=== PATIENT | male | born 1955 | race Caucasian/White ===

== ENCOUNTER 2024-04-07 16:42 | Emergency (ER) | payer OTHER ==
[~2024-04-07] VITALS: Ht 177.8 cm; Wt 88.5 kg
[~2024-04-07 16:42] MED LIST: ASPI325 PO; ATOR40TA PO; CLOP75 PO; IBUP800 PO; NITR.4SL SL; OLME20 PO; PANT20; PRED20 PO; RANEXA1000 M4; TESTTP TOP; VALS80
[2024-04-07 17:48] VITALS: BP 144/88
[2024-04-07] MEDS ORDERED: Ondansetron HCl 2 MG / ML 2ML Vial IV PRN (18:00)
== END 2024-04-07 18:37 | disposition left against medical advice (07) ==
LOC: ER 16:42
DX: Z53.21 Procedure and treatment not carried out due to patient leaving prior to being seen by health care provider (principal)
CPT/HCPCS: 93005; 93010

== ENCOUNTER 2024-06-30 18:24 | Inpatient (IN) | payer OTHER ==
[~2024-06-30] VITALS: Ht 177.8 cm; Wt 94.1 kg
[~2024-06-30 18:24] MED LIST changes: -PANT20; +PANT20 PO; -RANEXA1000 M4; +RANEXA1000 M4 PO; -VALS80; +VALS80 PO
[2024-06-30 22:35] LABS: Body Fluid Crystals NEG (NEGATIVE)
[2024-06-30 22:51] LABS: Glucose, Body Fluid 9 mg/dL; Protein, Body Fluid 1.6 g/dL; WBC Count, Synovial Fluid 7763 /mm3 (0-180)
[2024-06-30 23:00] LABS: Appearance, Synovial Fluid Hazy (Clear); Color, Synovial Fluid Yellow (None-P Yel); RBC Count, Synovial Fluid 155 /mm3 (0-0)
[2024-06-30] MEDS ORDERED: CefTRIAXone Sodium 2,000 MG in NS 100 ML IV ONE (23:20)
[2024-06-30 23:22] LABS: Lymphs, Synovial Fluid 1 % (0-15); Monocytes/Macrophages, Synovia 16 % (0-65); Neutrophils, Synovial Fluid 83 % (0-24)
[2024-07-01] VITALS (12 sets, daily range): BP systolic 111–141; BP diastolic 61–90
[2024-07-01] MEDS ORDERED: Acetaminophen 325 MG TABLET PO PRN ×2 (00:45→11:40)
[2024-07-01] MEDS ORDERED: FLU VACC TS2024-25(6MOS UP)/PF 45 MCG/0.5 ML SYRINGE IM ONE ×2 (00:50→11:35)
[2024-07-01] MEDS ORDERED: OxyCODONE HCL 5 MG TAB PO PRN ×2 (00:50→11:40)
[2024-07-01] MEDS ORDERED: Ondansetron HCl 2 MG / ML 2ML Vial IV PRN ×3 (00:50→11:45)
[2024-07-01] MEDS ORDERED: Lactated Ringer's 1,000 ML IV SCH ×2 (01:00→09:45)
[2024-07-01] MEDS ORDERED: Lactated Ringer's 1,000 ML IV ONE (01:52)
[2024-07-01] MEDS ORDERED: Vancomycin HCL 2,500 MG in NS 500 ML IV ONE (02:35)
[2024-07-01 05:56] LABS: BASOPHILS ABSOLUTE AUTO 0.02 K/mm3 (0.00-0.23); BASOPHILS PERCENT AUTO 0 % (0-2); EOSINOPHILS ABSOLUTE AUTO 0.09 K/mm3 (0.00-0.68); EOSINOPHILS PERCENT AUTO 1 % (0-6); Hematocrit 37.8 % (37.0-53.0); Hemoglobin 12.9 g/dL (13.5-17.5); IMMATURE GRAN ABSOLUTE AUTO 0.04 K/mm3 (0.00-0.10); IMMATURE GRAN PERCENT AUTO 0 % (0-1); LYMPHOCYTES ABSOLUTE AUTO 1.84 K/mm3 (0.84-5.20); LYMPHOCYTES PERCENT AUTO 19 % (21-46); MONOCYTES ABSOLUTE AUTO 1.14 K/mm3 (0.16-1.47); MONOCYTES PERCENT AUTO 12 % (4-13); Mean Corpuscular HGB 31.9 pg (26.0-34.0); Mean Corpuscular HGB Conc 34.1 g/dL (31.5-36.5); Mean Corpuscular Volume 94 fL (80-100); Mean Platelet Volume 10.1 fL (9.1-12.4); NEUTROPHILS ABSOLUTE AUTO 6.49 K/mm3 (1.96-9.15); NEUTROPHILS PERCENT AUTO 68 % (41-73); Platelet Count 167 K/mm3 (150-400); RDW Coefficient Variation 13.2 % (11.7-14.2); RDW Standard Deviation 45.6 fL (35.1-46.3); Red Blood Cell Count 4.04 M/mm3 (4.30-5.90); White Blood Cell Count 9.62 K/mm3 (4.00-11.30)
[2024-07-01 06:09] LABS: International Normalized Ratio 1.06; Prothrombin Time Results 11.3 Sec (9.7-11.5)
[2024-07-01 06:13] LABS: Magnesium, Blood 1.7 mg/dL (1.6-2.4)
[2024-07-01 06:14] LABS: Albumin, Blood 3.4 g/dL (3.4-5.0); Albumin/Globulin Ratio 1.1 (0.8-1.8); Bilirubin, Total 0.5 mg/dL (0.1-1.0); Bun/Creatinine Ratio 15.8 (12.0-20.0); Calcium, Blood 8.4 mg/dL (8.5-10.1); Creatinine, Blood 0.82 mg/dL (0.60-1.20); Globulin, Blood 3.1 g/dL (2.2-4.0); Potassium, Blood 3.9 mmol/L (3.5-5.5); Total Protein, Blood 6.5 g/dL (6.4-8.2)
[2024-07-01] MEDS ORDERED: Docusate Sodium 100 MG Cap PO SCH ×2 (09:00→21:00)
[2024-07-01] MEDS ORDERED: Lactobacil 2-S.Thermo-Bifido 1 1 Cap PO SCH (09:00)
[2024-07-01] MEDS ORDERED: Ondansetron HCl 2 MG / ML 2ML Vial ONE (09:32)
[2024-07-01] MEDS ORDERED: propofoL 20 ML IV ONE (09:32)
[2024-07-01] MEDS ORDERED: Lidocaine HCl 2% 20 ML MDV ONE (09:32)
[2024-07-01] MEDS ORDERED: Rocuronium Bromide 10 MG/ML 5ML Injection IV ONE (09:32)
[2024-07-01] MEDS ORDERED: FentaNYL Citrate 50 MCG/ML 2 ML Injection ONE ×2 (09:33→10:44)
[2024-07-01] MEDS ORDERED: Bupivacaine 0.5% HCl 5 MG/ML 30MLVIAL ONE (09:35)
[2024-07-01] MEDS ORDERED: EPINEPhrine HCl 1 MG / ML 30ML Vial ONE (09:35)
[2024-07-01] MEDS ORDERED: Sugammadex Sodium 200 MG/2ML SDV (100 MG/ML) ONE (10:18)
[2024-07-01] MEDS ORDERED: Labetalol HCL 5 MG/ML 4ML Injection (Single Dose) ONE (10:42)
[2024-07-01] MEDS ORDERED: Bupivacaine 0.5% W/EPI 1:200000 SDV 30 ML Vial ONE (10:51)
[2024-07-01] MEDS ORDERED: FentaNYL Citrate 50 MCG/ML 2 ML Injection IV PRN ×2 (10:55→11:00)
[2024-07-01] MEDS ORDERED: Prochlorperazine Edisylate 10 mg Vial IV PRN (10:55)
[2024-07-01] MEDS ORDERED: HYDROmorphone HCl/Pf 1MG SYR IV PRN ×3 (11:00→11:35)
[2024-07-01] MEDS ORDERED: Labetalol HCL 5 MG/ML 4ML Injection (Single Dose) IV PRN (11:00)
[2024-07-01] MEDS ORDERED: NS KCl 20mEq 1,000 ML IV SCH (11:35)
[2024-07-01] MEDS ORDERED: Bisacodyl 10 MG Supp PR PRN (11:35)
[2024-07-01] MEDS ORDERED: DiphenhydrAMINE HCL 25 MG Cap PO PRN (11:40)
[2024-07-01] MEDS ORDERED: Metoclopramide HCl 10 MG Tab PO PRN (11:40)
[2024-07-01] MEDS ORDERED: Ondansetron 4 MG TAB PO PRN (11:40)
[2024-07-01] MEDS ORDERED: Naloxone HCl 0.4MG / ML 1ML Vial IV PRN (11:40)
[2024-07-01] MEDS ORDERED: Magnesium Hydroxide Conc 10 ML UDC PO PRN (11:45)
[2024-07-01] MEDS ORDERED: Ketorolac Tromethamine 30mg Vial IV PRN (12:05)
--- NOTE | 2024-07-01 12:17 | NUR ---
POST OP S/P LEFT KNEE I&D WITH HEMOVAC. PT ALERT AND ORIENTED. DENIES PAIN. DENIES N/T. ABLE TO WIGGLE TOES. CAP REFILL <3 SECONDS. ANA ROSA WRAP DRESSING TO L KNEE APPEARS CDI. HEMOVAC COMPRESSED AND INTACT. OFFERING FLUIDS AND FOOD. POST OP VS IN PROGRESS AND STABLE. ORIENTED TO ROOM, TREATMENT PLAN, AND CALL LIGHT. AT BEDSIDE FOR SUPPORT.
[2024-07-01 12:20] LABS: Body Fluid Crystals NEG (NEGATIVE)
[2024-07-01 12:36] LABS: BODY FLUID RBC 0.008 M/mm3 (0-0)
[2024-07-01 12:53] LABS: RBC Count, Synovial Fluid 8000 /mm3 (0-0); WBC Count, Synovial Fluid 5760 /mm3 (0-180)
[2024-07-01 13:33] LABS: Color, Synovial Fluid Yellow (None-P Yel); Lymphs, Synovial Fluid 2 % (0-15); Monocytes/Macrophages, Synovia 12 % (0-65); Neutrophils, Synovial Fluid 86 % (0-24)
[2024-07-01 13:34] LABS: Appearance, Synovial Fluid Cloudy (Clear)
[2024-07-01] MEDS ORDERED: ASPI81CH PO (13:36)
[2024-07-01] MEDS ORDERED: TAMS.4ER PO (13:37)
[2024-07-01] MEDS ORDERED: FINESTERIDE PO (13:38)
--- NOTE | 2024-07-01 14:15 | NUR ---
ASSUMTION OF CARE ASSUMED CARE OF THE PATIENT FROM PRIMARY DAY RN. REPORT GIVEN AT BEDSIDE, PT RESTING IN BED STATING HE WAS JUST GIVEN PAIN MEDICATIONS AND DIDN'T NEED ANYTHING AT THIS TIME. PT ASKED ABOUT THE DRAIN HAVING MORE BLOOD IN IT NOW THAT IT IS COLLECTING IN THE MAIN COMPARTMENT OF THE HEMOVAC. ASSURED PATIENT THAT THIS IS HOW THE DRAIN IS INTENDED TO WORK AND HAVING AN INCREASE AFTER ACTIVITY IS NOT CONCERNING. SMALL AMOUNT OF SANG DRAINAGE NOTED IN THE CANISTER AT THIS TIME. NO ACUTE NEEDS AT THIS TIME.
[2024-07-01] MEDS ORDERED: Vancomycin HCL 1,250 MG in NS 250 ML IV SCH (15:00)
[2024-07-01] MEDS ORDERED: NS 500 ML IV SCH (19:45)
[2024-07-01] MEDS ORDERED: NS 250 ML IV PRN (19:45)
--- NOTE | 2024-07-01 20:33 | NUR ---
PER REQUEST OF PT,I SPOKE WITH DR BABB AND OBTAINED AN ORDER FOR RANEXA PT TAKES AT HOME. I SPOKE WITH PHARMACIST "ASHLEY" THE ONLY RANEXA I CAN FIND IN OUR REGISTER IS NO LISTED SUSTAINED RELEASE WHICH IS HOW PT LISTS IT ON HIS HOME MED LIST. PHARMACIST STATES THERE IS ONLY 1 WAY THE SENIOR [employer] DEVELOPER SUPPLIES RANEXA AND ORDERED IS COMPATIBLE WITH PT LISTING OF SUSTAINED RELEASE.
[2024-07-01] MEDS ORDERED: Ranolazine 500 MG ER Tablet PO SCH (21:00)
[2024-07-01] MEDS ORDERED: CefTRIAXone Sodium 2,000 MG in NS 100 ML IV SCH (21:00)
[2024-07-02 02:14] LABS: BASOPHILS ABSOLUTE AUTO 0.02 K/mm3 (0.00-0.23); BASOPHILS PERCENT AUTO 0 % (0-2); EOSINOPHILS PERCENT AUTO 0 % (0-6); Hematocrit 36.6 % (37.0-53.0); Hemoglobin 12.6 g/dL (13.5-17.5); IMMATURE GRAN ABSOLUTE AUTO 0.05 K/mm3 (0.00-0.10); IMMATURE GRAN PERCENT AUTO 0 % (0-1); LYMPHOCYTES ABSOLUTE AUTO 1.09 K/mm3 (0.84-5.20); LYMPHOCYTES PERCENT AUTO 7 % (21-46); MONOCYTES ABSOLUTE AUTO 0.93 K/mm3 (0.16-1.47); MONOCYTES PERCENT AUTO 6 % (4-13); Mean Corpuscular HGB 32.7 pg (26.0-34.0); Mean Corpuscular HGB Conc 34.4 g/dL (31.5-36.5); Mean Corpuscular Volume 95 fL (80-100); Mean Platelet Volume 10.7 fL (9.1-12.4); NEUTROPHILS ABSOLUTE AUTO 13.57 K/mm3 (1.96-9.15); NEUTROPHILS PERCENT AUTO 87 % (41-73); Platelet Count 166 K/mm3 (150-400); RDW Coefficient Variation 13.2 % (11.7-14.2); RDW Standard Deviation 45.4 fL (35.1-46.3); Red Blood Cell Count 3.85 M/mm3 (4.30-5.90); White Blood Cell Count 15.66 K/mm3 (4.00-11.30)
[2024-07-02 02:39] LABS: Vancomycin, Trough 15.1 ug/mL (5.0-10.0)
[2024-07-02 03:26] VITALS: BP 160/88
--- NOTE | 2024-07-02 05:17 | NUR ---
SHIFT SUMMARY PT S/P LEFT KNEE ARTHROSCOPY. DRAIN AND ANA ROSA BANDAGE IN PLACE. SS DISCHARGE, LIGHT AMOUNT. SOME PAIN THIS SHIFT MANAGED WITH MEDS PER EMAR. PT DENIES N/T IN EXT, ABLE TO WIGGLE TOES. VITALS STABLE. IV ANTIBIOTICS. TOLERATING PO INTAKE. PT IS VOIDING, SELF CATHS. SBA. PLAN OF CARE UNCHANGED T/O THE NIGHT. BED IN LOWEST POSITION, CALL LIGHT WITHIN REACH.
[2024-07-02 05:47] LABS: Blood Urea Nitrogen 15 mg/dL (8-24); Creatinine, Blood 0.83 mg/dL (0.60-1.20)
[2024-07-02] MEDS ORDERED: Pantoprazole Sodium 40 MG Tab PO SCH (06:05)
[2024-07-02 07:11] VITALS: BP 144/78
[2024-07-02] MEDS ORDERED: Enoxaparin 40 MG/0.4 ML SYR SC SCH (09:00)
--- NOTE | 2024-07-02 13:00 | NUR ---
FLUSHED PT IS FLUSHED, HE STATES THIS IS NOT HIS BASELINE. 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 DURON. PER DR. OLIVERIO GUAJARDO TO PRE-MEDICATE WITH BENADRYL BEFORE 1500 DOSE OF ABX. PER PT BENADRYL MAKES HIM "AMPED." DISCUSSED CONCERN WITH DR. DURON, PER DR. OLIVERIO GUAJARDO TO SLOW RATE OF VANCO AT NEXT DOSE.
[2024-07-02 15:53] VITALS: BP 130/66
--- NOTE | 2024-07-02 16:53 | NUR ---
ASSUMED CARE OF PT FROM DIAMANTE Headley RN PT AMBULATING IN [facility] W/SPOUSE.
--- NOTE | 2024-07-02 17:33 | NUR ---
SHIFT SUMMARY PT IS POD#1 FROM L KNEE I&D WITH DR. QUIROS. HEMOVAC DRAIN WAS REMOVED THIS AFTERNOON. PAIN MANAGED WITH TYLENOL. PT TOLERATING FOOD AND FLUIDS. PT HAS BEEN A SBA WHEN OOB. REPORT GIVEN TO GLORY RIOS AT 1650.
--- NOTE | 2024-07-02 17:53 | NUR ---
PT TOLERATED 1500 DOSE OF VANCO WITHOUT FLUSHING.
[2024-07-02 19:17] VITALS: BP 131/81
[2024-07-03 03:11] VITALS: BP 154/94
--- NOTE | 2024-07-03 06:01 | NUR ---
SHIFT SUMMARY NO ACUTE CHANGES TO REPORT OVERNIGHT. PT REPORTS MINIMAL PAIN MOST OF THE NIGHT, BUT STARTED TO REPORT SOME PAIN THIS AM, MANAGED WITH MEDS PER EMAR. PT ABLE TO WIGGLE TOES, DENIES N/T, AND SURGICAL SITE WNL. PT HAS BEEN AMBULATING INDEPENDENTLY IN ROOM. SELF CATHS WITH HIS OWN SUPPLIES. IV ANTIBIOTICS CONTINUED. PLAN OF CARE REMAINS UNCHANGED. BED IN LOWEST POSITION, CALL LIGHT WIHTIN REACH.
[2024-07-03 07:02] VITALS: BP 149/91
[2024-07-03] MEDS ORDERED: Losartan Potassium 50 MG Tab PO SCH (09:00)
[2024-07-03] MEDS ORDERED: Atorvastatin 40 MG Tab PO SCH (10:00)
[2024-07-03] MEDS ORDERED: Finasteride 5 MG Tab PO SCH (10:00)
[2024-07-03 14:08] VITALS: BP 137/83
--- NOTE | 2024-07-03 17:26 | NUR ---
PATIENT IS ALERT AND ORIENTED AND COOPERATIVE WITH CARE. PICC LINE PLACED THIS AFTERNOON. CARE MANAGEMENT IS WORKING ON GETTING [facility] DIS[facility]GE. THE PATIENT'S IS AT THE BEDSIDE. DR. QUIROS CLEANSED THE INSICION AND CHANGED THD DRESSING TODAY, HE CLEANSED WITH PEROXIDE AND PLACED AN ABD PAD AND WRAPPED WITH ANA ROSA BANDAGE. PLAN IS TO DC HOME AND FOLLOW UP IN INFUSION CLINIC AND FOLLOW UP WITH DR. QUIROS IN 2 WEEKS. PATIENT AMBULATED IN THE HALLS THREE TIMES TODAY. WILL CONTINUE TO MONITOR
[2024-07-03 19:06] VITALS: BP 160/92
[2024-07-03] MEDS ORDERED: Tamsulosin HCl 0.4 MG Cap PO SCH (21:00)
[2024-07-04 03:23] LABS: BASOPHILS ABSOLUTE AUTO 0.04 K/mm3 (0.00-0.23); BASOPHILS PERCENT AUTO 1 % (0-2); EOSINOPHILS ABSOLUTE AUTO 0.07 K/mm3 (0.00-0.68); EOSINOPHILS PERCENT AUTO 1 % (0-6); Hematocrit 31.3 % (37.0-53.0); Hemoglobin 10.5 g/dL (13.5-17.5); IMMATURE GRAN ABSOLUTE AUTO 0.02 K/mm3 (0.00-0.10); IMMATURE GRAN PERCENT AUTO 0 % (0-1); LYMPHOCYTES ABSOLUTE AUTO 1.45 K/mm3 (0.84-5.20); LYMPHOCYTES PERCENT AUTO 19 % (21-46); MONOCYTES ABSOLUTE AUTO 0.86 K/mm3 (0.16-1.47); MONOCYTES PERCENT AUTO 12 % (4-13); Mean Corpuscular HGB 32.1 pg (26.0-34.0); Mean Corpuscular HGB Conc 33.5 g/dL (31.5-36.5); Mean Corpuscular Volume 96 fL (80-100); Mean Platelet Volume 10.1 fL (9.1-12.4); NEUTROPHILS ABSOLUTE AUTO 5.03 K/mm3 (1.96-9.15); NEUTROPHILS PERCENT AUTO 67 % (41-73); Platelet Count 153 K/mm3 (150-400); RDW Coefficient Variation 13.1 % (11.7-14.2); RDW Standard Deviation 46.2 fL (35.1-46.3); Red Blood Cell Count 3.27 M/mm3 (4.30-5.90); White Blood Cell Count 7.47 K/mm3 (4.00-11.30)
[2024-07-04 03:43] LABS: Alanine Aminotransfer (ALT/SGP 18 U/L (12-78); Albumin, Blood 2.5 g/dL (3.4-5.0); Alk Phos 72 U/L (50-136); Anion Gap 7 mmol/L (3-11); Aspartate Aminotrans (AST/SGOT 11 U/L (12-37); Bilirubin, Total 0.3 mg/dL (0.1-1.0); Blood Urea Nitrogen 14 mg/dL (8-24); Bun/Creatinine Ratio 17.5 (12.0-20.0); CO2, Blood 24 mmol/L (21-32); Calcium, Blood 6.9 mg/dL (8.5-10.1); Chloride, Blood 114 mmol/L (98-108); Globulin, Blood 2.4 g/dL (2.2-4.0); Glomerular Filtration Rate 98 (60-); Glucose, Blood 85 mg/dL (70-99); Potassium, Blood 3.4 mmol/L (3.5-5.5); Sodium, Blood 142 mmol/L (136-145); Total Protein, Blood 4.9 g/dL (6.4-8.2); Vancomycin, Trough 16.6 ug/mL (5.0-10.0)
[2024-07-04 03:53] VITALS: BP 177/85
--- NOTE | 2024-07-04 04:54 | NUR ---
SHIFT SUMMARY POD3 L KNEE I&D. DRESSING REAMAINS C/D/I. SENSATION AND CIRCULATION REMAINS INTACT. VSS. PT SLEPT ON AND OFF T/O THE NIGHT. MEDICATED FOR PAIN X1 W/TORADOL. OTHERWISE PT UTILIZED ICE FOR PAIN MANAGEMENT. PT SELF CATHS T/O THE NIGHT, NO ISSUES REPORTED WITH THIS. TOLLERATING PO W/O N/V. AMBULATING INDEP T/O THE HALLS. OVERALL NO ACUTE EVENTS NOTED, AWAITING D/C PLANNING.
[2024-07-04 07:23] VITALS: BP 167/84
[2024-07-04] MEDS ORDERED: Aspirin 81 MG Chew PO SCH (09:00)
[2024-07-04 17:11] VITALS: BP 162/84
[2024-07-04 19:17] VITALS: BP 165/76
[2024-07-05 03:33] VITALS: BP 159/76
--- NOTE | 2024-07-05 05:06 | NUR ---
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 IND IN HALLWAYS AND ROOM. ABX INFUSED PER ORDERS. CHARITY PO INTAKE, DENIES N/V. LEFT KNEE INCISIONS CDI, LLE ELEVATED AND KNEE ICE THERAPY APPLIED PRN. PT REPORTS CHARITY PAIN. PICC JOSE DE JESUS FLUSHES AND DRAWS WITH DRESSING CDI. CHG SCRUB COMPLETED. PT RESTING IN BED WITH CALL LIGHT IN REACH. WILL GIVE REPORT TO ONCOMING RN.
[2024-07-05 07:22] VITALS: BP 149/92
[2024-07-05 16:08] VITALS: BP 178/92
--- NOTE | 2024-07-05 17:53 | NUR ---
END OF SHIFT PT INDEPENDENT. WALKING HALLWAY. DENIES COMPLAINTS. WILL CONTINUE TO MONITOR
[2024-07-05 19:28] VITALS: BP 175/92
[2024-07-05 22:49] VITALS: BP 166/88
[2024-07-06 05:04] VITALS: BP 162/76
--- NOTE | 2024-07-06 05:51 | NUR ---
SHIFT SUMMARY NO ACUTE CHANGES TO REPORT OVERNIGHT. IV ANTIBIOTICS PER EMAR. PT HAS BEEN INDEPENDENT IN THE ROOM. PAIN MANANGED WITH MEDS PER EMAR. PLAN OF CARE REMAINS UNCHANGED, STILL AWAITING [facility] APPROV[facility] FOR OUTPT IV ANTIBIOTICS. BED IN LOWEST POSITION, CALL LIGHT WITHIN REACH.
[2024-07-06 07:30] VITALS: BP 173/78
[2024-07-06 14:34] VITALS: BP 150/77
[2024-07-06] MEDS ORDERED: CEFTRIAXONE2 G1 IV (17:04)
[2024-07-06] MEDS ORDERED: PROBIOTIC1 EA13 PO (17:05)
[2024-07-06] MEDS ORDERED: VANCOMYCIN1.25 GM/24 IV (17:05)
--- NOTE | 2024-07-06 17:20 | NUR ---
DISCHARGE ARRANGEMENTS MADE w/ [facility]. PICC LINE CARE DISCUSSED. WOUND CARE SUPPLIES GIVEN. PT IS VERY EXCITED TO GO HOME. DECLINES WC & AMBULATES OUT w/ SPOUSE.
[2024-07-07] MEDS ORDERED: VITAMIN D33000 UNIT PO (09:47)
[2024-07-07] MEDS ORDERED: MULVITA PO (09:47)
[2024-07-07] MEDS ORDERED: CALCIUM GLUCONA PO (09:48)
== END 2024-07-06 17:38 | disposition home or self-care (01) | DRG 487 ==
LOC: ER 18:24 → ERHOLD 18:25 → SURS 07-01 11:31 → ERHOLD 07-01 11:32 → SURS 07-01 11:59
PROVIDERS: Family Medicine; Orthopaedic Surgery; Student in an Organized Health Care Education/Training Program; ADMIT Student in an Organized Health Care Education/Training Program
PROC: 0S9D3ZZ Drainage of Left Knee Joint, Percutaneous Approach (ICD-10-PCS; 2024-06-30)
PROC: 0SBD4ZZ Excision of Left Knee Joint, Percutaneous Endoscopic Approach (ICD-10-PCS; principal; 2024-07-01 10:00)
PROC: 02HV33Z Insertion of Infusion Device into Superior Vena Cava, Percutaneous Approach (ICD-10-PCS; 2024-07-03)
PROC: B548ZZA Ultrasonography of Superior Vena Cava, Guidance (ICD-10-PCS; 2024-07-03)
DX: M00.9 Pyogenic arthritis, unspecified (principal); I25.10 Atherosclerotic heart disease of native coronary artery without angina pectoris; I10 Essential (primary) hypertension; Z88.0 Allergy status to penicillin; Z88.2 Allergy status to sulfonamides; Z88.1 Allergy status to other antibiotic agents; Z88.8 Allergy status to other drugs, medicaments and biological substances; Z79.899 Other long term (current) drug therapy; Z79.82 Long term (current) use of aspirin; Z90.49 Acquired absence of other specified parts of digestive tract; Z98.890 Other specified postprocedural states; Z28.21 Immunization not carried out because of patient refusal; I25.2 Old myocardial infarction; Z95.5 Presence of coronary angioplasty implant and graft
CPT/HCPCS: 20610; 36415; 73562-LT; 80053; 80202; 82565; 82945; 83605; 83735; 84157; 84520; 85025; 85610; 85651; 86140; 87040; 87070; 87075; 87205; 89051; 89060; 93971; 96361; 96365; 96366; 96367; 96375; 96376; 97110; 97116; 97161; 97530; 99285-25; A9270; G0378; J0171; J0696; J1650; J1885; J2405; J2704; J3010; J3370; J3480; J7040; J7050; J7120

== ENCOUNTER 2024-07-07 00:41 | Day surgery (SDC) | payer OTHER ==
[~2024-07-07 00:41] MED LIST changes: +ASPI81CH PO; +CEFTRIAXONE2 G1 IV; +FINESTERIDE PO; +PROBIOTIC1 EA13 PO; +TAMS.4ER PO; +VANCOMYCIN1.25 GM/24 IV
[2024-07-07] MEDS ORDERED: CefTRIAXone Sodium 2,000 MG in NS 100 ML IV SCH (01:00)
[2024-07-07] MEDS ORDERED: Vancomycin HCL 1,250 MG in NS 250 ML IV SCH (06:00)
[2024-07-07 07:28] VITALS: BP 168/93
[2024-07-07] MEDS ORDERED: VITAMIN D33000 UNIT PO (09:47)
[2024-07-07] MEDS ORDERED: MULVITA PO (09:47)
[2024-07-07] MEDS ORDERED: CALCIUM GLUCONA PO (09:48)
[2024-07-07 15:36] VITALS: BP 154/85
== END 2024-07-07 17:13 | disposition home or self-care (01) ==
LOC: ATC 00:41
DX: M00.862 Arthritis due to other bacteria, left knee (principal); I25.10 Atherosclerotic heart disease of native coronary artery without angina pectoris; I10 Essential (primary) hypertension; Z95.5 Presence of coronary angioplasty implant and graft; Z88.0 Allergy status to penicillin; Z88.2 Allergy status to sulfonamides; Z88.8 Allergy status to other drugs, medicaments and biological substances; Z79.82 Long term (current) use of aspirin; Z79.899 Other long term (current) drug therapy
CPT/HCPCS: 96365; 96366; 96367; J0696; J3370; J7050

== ENCOUNTER 2024-07-08 00:24 | Day surgery (SDC) | payer OTHER ==
[~2024-07-08] VITALS: Ht 177.8 cm; Wt 94.1 kg
[~2024-07-08 00:24] MED LIST changes: +CALCIUM GLUCONA PO; +MULVITA PO; +VITAMIN D33000 UNIT PO
[2024-07-08] MEDS ORDERED: CefTRIAXone Sodium 2,000 MG in NS 100 ML IV SCH (06:00)
[2024-07-08] MEDS ORDERED: Vancomycin HCL 1,250 MG in NS 250 ML IV SCH (06:00)
[2024-07-08 07:33] VITALS: BP 139/67
[2024-07-08 07:39] LABS: BASOPHILS ABSOLUTE AUTO 0.05 K/mm3 (0.00-0.23); BASOPHILS PERCENT AUTO 1 % (0-2); EOSINOPHILS ABSOLUTE AUTO 0.16 K/mm3 (0.00-0.68); EOSINOPHILS PERCENT AUTO 2 % (0-6); Hematocrit 36.6 % (37.0-53.0); Hemoglobin 12.3 g/dL (13.5-17.5); IMMATURE GRAN ABSOLUTE AUTO 0.02 K/mm3 (0.00-0.10); IMMATURE GRAN PERCENT AUTO 0 % (0-1); LYMPHOCYTES ABSOLUTE AUTO 1.27 K/mm3 (0.84-5.20); LYMPHOCYTES PERCENT AUTO 14 % (21-46); MONOCYTES ABSOLUTE AUTO 0.67 K/mm3 (0.16-1.47); MONOCYTES PERCENT AUTO 8 % (4-13); Mean Corpuscular HGB 31.7 pg (26.0-34.0); Mean Corpuscular HGB Conc 33.6 g/dL (31.5-36.5); Mean Corpuscular Volume 94 fL (80-100); Mean Platelet Volume 10.1 fL (9.1-12.4); NEUTROPHILS ABSOLUTE AUTO 6.65 K/mm3 (1.96-9.15); NEUTROPHILS PERCENT AUTO 75 % (41-73); Platelet Count 185 K/mm3 (150-400); RDW Coefficient Variation 13.1 % (11.7-14.2); RDW Standard Deviation 45.2 fL (35.1-46.3); Red Blood Cell Count 3.88 M/mm3 (4.30-5.90); White Blood Cell Count 8.82 K/mm3 (4.00-11.30)
[2024-07-08 08:02] LABS: Alanine Aminotransfer (ALT/SGP 61 U/L (12-78); Albumin, Blood 3.3 g/dL (3.4-5.0); Alk Phos 114 U/L (50-136); Anion Gap 8 mmol/L (3-11); Aspartate Aminotrans (AST/SGOT 40 U/L (12-37); Bilirubin, Total 0.4 mg/dL (0.1-1.0); Blood Urea Nitrogen 13 mg/dL (8-24); Bun/Creatinine Ratio 15.3 (12.0-20.0); CO2, Blood 24 mmol/L (21-32); Calcium, Blood 8.3 mg/dL (8.5-10.1); Chloride, Blood 109 mmol/L (98-108); Creatinine, Blood 0.85 mg/dL (0.60-1.20); Globulin, Blood 3.3 g/dL (2.2-4.0); Glomerular Filtration Rate 96 (60-); Glucose, Blood 184 mg/dL (70-99); Potassium, Blood 3.8 mmol/L (3.5-5.5); Sodium, Blood 137 mmol/L (136-145); Total Protein, Blood 6.6 g/dL (6.4-8.2); Vancomycin, Trough 14.8 ug/mL (5.0-10.0)
[2024-07-08 15:32] VITALS: BP 141/86
== END 2024-07-08 18:06 | disposition home or self-care (01) ==
LOC: ATC 00:24
PROVIDERS: Family Medicine
DX: M00.9 Pyogenic arthritis, unspecified (principal); I25.10 Atherosclerotic heart disease of native coronary artery without angina pectoris; I10 Essential (primary) hypertension; Z88.2 Allergy status to sulfonamides; Z88.8 Allergy status to other drugs, medicaments and biological substances
CPT/HCPCS: 80053; 80202; 85025; 96365; 96366; J0696; J3370; J7050

== ENCOUNTER 2024-07-09 02:26 | Day surgery (SDC) | payer OTHER ==
[~2024-07-09 02:26] MED LIST changes: +CefTRIAXone Sodium 2,000 MG in NS 100 ML IV SCH; +Vancomycin HCL 1,250 MG in NS 250 ML IV SCH
[2024-07-09 07:44] VITALS: BP 146/78
== END 2024-07-09 17:05 | disposition home or self-care (01) ==
LOC: ATC 02:26
DX: M00.9 Pyogenic arthritis, unspecified (principal); I25.10 Atherosclerotic heart disease of native coronary artery without angina pectoris; I10 Essential (primary) hypertension; Z88.0 Allergy status to penicillin; Z88.2 Allergy status to sulfonamides; Z88.8 Allergy status to other drugs, medicaments and biological substances; Z79.899 Other long term (current) drug therapy
CPT/HCPCS: 96365; 96366; 96367; J0696; J3370; J7050

== ENCOUNTER 2024-07-10 07:26 | Day surgery (SDC) | payer OTHER ==
[2024-07-10 07:38] VITALS: BP 140/68
== END 2024-07-10 17:07 | disposition home or self-care (01) ==
LOC: ATC 07:26
DX: M00.862 Arthritis due to other bacteria, left knee (principal); I25.10 Atherosclerotic heart disease of native coronary artery without angina pectoris; I10 Essential (primary) hypertension; Z95.5 Presence of coronary angioplasty implant and graft; Z79.82 Long term (current) use of aspirin; Z79.899 Other long term (current) drug therapy; Z88.0 Allergy status to penicillin; Z88.2 Allergy status to sulfonamides; Z88.1 Allergy status to other antibiotic agents; Z88.8 Allergy status to other drugs, medicaments and biological substances; Z90.49 Acquired absence of other specified parts of digestive tract
CPT/HCPCS: 96365; 96366; 96367; J0696; J3370; J7050

== ENCOUNTER 2024-07-11 01:45 | Day surgery (SDC) | payer OTHER ==
[~2024-07-11 01:45] MED LIST changes: -Vancomycin HCL 1,250 MG in NS 250 ML IV SCH
[2024-07-11] MEDS ORDERED: Vancomycin HCL 1,250 MG in NS 250 ML IV SCH (06:00)
[2024-07-11 07:40] VITALS: BP 138/74
[2024-07-11 15:39] VITALS: BP 138/74
== END 2024-07-11 16:55 | disposition home or self-care (01) ==
LOC: ATC 01:45
DX: M00.862 Arthritis due to other bacteria, left knee (principal); I10 Essential (primary) hypertension; I25.10 Atherosclerotic heart disease of native coronary artery without angina pectoris; Z95.5 Presence of coronary angioplasty implant and graft; Z88.0 Allergy status to penicillin; Z88.2 Allergy status to sulfonamides; Z88.1 Allergy status to other antibiotic agents; Z88.8 Allergy status to other drugs, medicaments and biological substances; Z79.82 Long term (current) use of aspirin; Z79.899 Other long term (current) drug therapy
CPT/HCPCS: 96365; 96367; J0696; J3370; J7050

== ENCOUNTER 2024-07-12 02:38 | Day surgery (SDC) | payer OTHER ==
[~2024-07-12 02:38] MED LIST changes: -CefTRIAXone Sodium 2,000 MG in NS 100 ML IV SCH
[2024-07-12] MEDS ORDERED: CefTRIAXone Sodium 2,000 MG in NS 100 ML IV SCH (06:00)
[2024-07-12 07:32] VITALS: BP 138/67
[2024-07-12 08:16] LABS: Creatinine, Blood 0.78 mg/dL (0.60-1.20); Vancomycin, Trough 13.7 ug/mL (5.0-10.0)
[2024-07-12] MEDS ORDERED: Vancomycin HCL 1,250 MG in NS 250 ML IV SCH (08:25)
[2024-07-12 10:58] LABS: BASOPHILS ABSOLUTE AUTO 0.05 K/mm3 (0.00-0.23); BASOPHILS PERCENT AUTO 1 % (0-2); EOSINOPHILS ABSOLUTE AUTO 0.15 K/mm3 (0.00-0.68); EOSINOPHILS PERCENT AUTO 2 % (0-6); Hematocrit 38.5 % (37.0-53.0); Hemoglobin 12.6 g/dL (13.5-17.5); IMMATURE GRAN ABSOLUTE AUTO 0.01 K/mm3 (0.00-0.10); IMMATURE GRAN PERCENT AUTO 0 % (0-1); LYMPHOCYTES ABSOLUTE AUTO 1.39 K/mm3 (0.84-5.20); LYMPHOCYTES PERCENT AUTO 18 % (21-46); MONOCYTES ABSOLUTE AUTO 0.81 K/mm3 (0.16-1.47); MONOCYTES PERCENT AUTO 11 % (4-13); Mean Corpuscular HGB 30.8 pg (26.0-34.0); Mean Corpuscular HGB Conc 32.7 g/dL (31.5-36.5); Mean Corpuscular Volume 94 fL (80-100); Mean Platelet Volume 10.2 fL (9.1-12.4); NEUTROPHILS ABSOLUTE AUTO 5.27 K/mm3 (1.96-9.15); NEUTROPHILS PERCENT AUTO 69 % (41-73); Platelet Count 219 K/mm3 (150-400); RDW Coefficient Variation 12.8 % (11.7-14.2); RDW Standard Deviation 44.3 fL (35.1-46.3); Red Blood Cell Count 4.09 M/mm3 (4.30-5.90); White Blood Cell Count 7.68 K/mm3 (4.00-11.30)
[2024-07-12 11:10] LABS: Albumin, Blood 3.4 g/dL (3.4-5.0); Bilirubin, Total 0.3 mg/dL (0.1-1.0); Bun/Creatinine Ratio 15.6 (12.0-20.0); Calcium, Blood 8.6 mg/dL (8.5-10.1); Creatinine, Blood 0.77 mg/dL (0.60-1.20); Globulin, Blood 3.5 g/dL (2.2-4.0); Potassium, Blood 4.2 mmol/L (3.5-5.5); Total Protein, Blood 6.9 g/dL (6.4-8.2)
[2024-07-12 15:35] VITALS: BP 150/81
== END 2024-07-12 23:00 | disposition home or self-care (01) ==
LOC: ATC 02:38
PROVIDERS: Family Medicine
DX: M00.862 Arthritis due to other bacteria, left knee (principal); I25.10 Atherosclerotic heart disease of native coronary artery without angina pectoris; I10 Essential (primary) hypertension; Z79.82 Long term (current) use of aspirin; Z79.899 Other long term (current) drug therapy; Z88.0 Allergy status to penicillin; Z88.2 Allergy status to sulfonamides; Z88.1 Allergy status to other antibiotic agents; Z88.8 Allergy status to other drugs, medicaments and biological substances; Z95.5 Presence of coronary angioplasty implant and graft; Z90.49 Acquired absence of other specified parts of digestive tract
CPT/HCPCS: 80053; 80202; 82565; 85025; 96365; 96366; 96367; J0696; J3370; J7050

== ENCOUNTER 2024-07-13 03:17 | Day surgery (SDC) | payer OTHER ==
[~2024-07-13 03:17] MED LIST changes: +CefTRIAXone Sodium 2,000 MG in NS 100 ML IV SCH
[2024-07-13] MEDS ORDERED: Vancomycin HCL 1,250 MG in NS 250 ML IV SCH (06:00)
[2024-07-13 07:28] VITALS: BP 149/70
[2024-07-13 15:23] VITALS: BP 163/84
== END 2024-07-13 16:45 | disposition home or self-care (01) ==
LOC: ATC 03:17
DX: M00.9 Pyogenic arthritis, unspecified (principal); I25.10 Atherosclerotic heart disease of native coronary artery without angina pectoris; I10 Essential (primary) hypertension; Z79.82 Long term (current) use of aspirin; Z79.899 Other long term (current) drug therapy; Z88.0 Allergy status to penicillin; Z88.2 Allergy status to sulfonamides; Z88.8 Allergy status to other drugs, medicaments and biological substances
CPT/HCPCS: 96365; 96367; J0696; J3370; J7050

== ENCOUNTER 2024-07-14 04:13 | Day surgery (SDC) | payer OTHER ==
[~2024-07-14 04:13] MED LIST changes: -CefTRIAXone Sodium 2,000 MG in NS 100 ML IV SCH
[2024-07-14] MEDS ORDERED: Vancomycin HCL 1,250 MG in NS 250 ML IV SCH (06:00)
[2024-07-14] MEDS ORDERED: CefTRIAXone Sodium 2,000 MG in NS 100 ML IV SCH (06:00)
[2024-07-14 07:32] VITALS: BP 149/91
[2024-07-14 15:40] VITALS: BP 159/78
[2024-07-14 16:20] LABS: BASOPHILS ABSOLUTE AUTO 0.14 K/mm3 (0.00-0.23); BASOPHILS PERCENT AUTO 2 % (0-2); EOSINOPHILS ABSOLUTE AUTO 0.15 K/mm3 (0.00-0.68); EOSINOPHILS PERCENT AUTO 2 % (0-6); Hematocrit 38.3 % (37.0-53.0); IMMATURE GRAN ABSOLUTE AUTO 0.02 K/mm3 (0.00-0.10); IMMATURE GRAN PERCENT AUTO 0 % (0-1); LYMPHOCYTES PERCENT AUTO 18 % (21-46); MONOCYTES ABSOLUTE AUTO 0.77 K/mm3 (0.16-1.47); MONOCYTES PERCENT AUTO 9 % (4-13); Mean Corpuscular HGB 31.6 pg (26.0-34.0); Mean Corpuscular HGB Conc 33.9 g/dL (31.5-36.5); Mean Corpuscular Volume 93 fL (80-100); Mean Platelet Volume 10.2 fL (9.1-12.4); NEUTROPHILS ABSOLUTE AUTO 5.85 K/mm3 (1.96-9.15); NEUTROPHILS PERCENT AUTO 69 % (41-73); Platelet Count 244 K/mm3 (150-400); RDW Coefficient Variation 12.9 % (11.7-14.2); RDW Standard Deviation 44.2 fL (35.1-46.3); Red Blood Cell Count 4.11 M/mm3 (4.30-5.90); White Blood Cell Count 8.43 K/mm3 (4.00-11.30)
== END 2024-07-14 17:10 | disposition home or self-care (01) ==
LOC: ATC 04:13
PROVIDERS: Orthopaedic Surgery
DX: M00.862 Arthritis due to other bacteria, left knee (principal); I25.10 Atherosclerotic heart disease of native coronary artery without angina pectoris; I10 Essential (primary) hypertension; Z95.5 Presence of coronary angioplasty implant and graft; Z79.82 Long term (current) use of aspirin; Z79.899 Other long term (current) drug therapy; Z88.0 Allergy status to penicillin; Z88.1 Allergy status to other antibiotic agents; Z88.2 Allergy status to sulfonamides; Z88.8 Allergy status to other drugs, medicaments and biological substances; Z90.49 Acquired absence of other specified parts of digestive tract
CPT/HCPCS: 85025; 85651; 86140; 96365; 96367; J0696; J3370; J7050

== ENCOUNTER 2024-07-15 04:04 | Day surgery (SDC) | payer OTHER ==
[~2024-07-15 04:04] MED LIST changes: +CefTRIAXone Sodium 2,000 MG in NS 100 ML IV SCH
[2024-07-15] MEDS ORDERED: Vancomycin HCL 1,250 MG in NS 250 ML IV SCH (06:00)
[2024-07-15 07:32] VITALS: BP 144/72
[2024-07-15 15:22] VITALS: BP 161/79
== END 2024-07-15 16:40 | disposition home or self-care (01) ==
LOC: ATC 04:04
DX: M00.862 Arthritis due to other bacteria, left knee (principal); I10 Essential (primary) hypertension; I25.10 Atherosclerotic heart disease of native coronary artery without angina pectoris; Z88.1 Allergy status to other antibiotic agents; Z88.0 Allergy status to penicillin; Z88.2 Allergy status to sulfonamides; Z88.8 Allergy status to other drugs, medicaments and biological substances; Z79.82 Long term (current) use of aspirin; Z79.899 Other long term (current) drug therapy; Z95.5 Presence of coronary angioplasty implant and graft; Z90.49 Acquired absence of other specified parts of digestive tract
CPT/HCPCS: 96365; 96366; 96367; J0696; J3370; J7050

== ENCOUNTER 2024-07-16 01:08 | Day surgery (SDC) | payer OTHER ==
[2024-07-16] MEDS ORDERED: Vancomycin HCL 1,250 MG in NS 250 ML IV SCH (06:00)
[2024-07-16 07:42] VITALS: BP 140/71
[2024-07-16 15:13] VITALS: BP 150/74
== END 2024-07-16 16:38 | disposition home or self-care (01) ==
LOC: ATC 01:08
DX: M00.9 Pyogenic arthritis, unspecified (principal); I25.10 Atherosclerotic heart disease of native coronary artery without angina pectoris; I10 Essential (primary) hypertension; Z88.8 Allergy status to other drugs, medicaments and biological substances; Z79.82 Long term (current) use of aspirin; Z88.0 Allergy status to penicillin; Z88.2 Allergy status to sulfonamides
CPT/HCPCS: 96365; 96367; J0696; J3370; J7050

== ENCOUNTER 2025-01-19 05:45 | Day surgery (SDC) | payer OTHER ==
[~2025-01-19] VITALS: Ht 177.8 cm; Wt 91.9 kg
[2025-01-19] VITALS (9 sets, daily range): BP systolic 122–150; BP diastolic 60–87
[~2025-01-19 05:45] MED LIST changes: -CefTRIAXone Sodium 2,000 MG in NS 100 ML IV SCH; +DILT120 PO; +FINA5 PO; -FINESTERIDE PO; +MAGNESIUM250 MG PO; +SUMA25 PO
[2025-01-19] MEDS ORDERED: CeFAZolin Sodium 2,000 MG in NS 100 ML IV SCH (06:35)
[2025-01-19] MEDS ORDERED: Tranexamic Acid 100 ML IV SCH (06:35)
[2025-01-19] MEDS ORDERED: FentaNYL Citrate 50 MCG/ML 2 ML Injection ONE (06:53)
[2025-01-19] MEDS ORDERED: Midazolam HCl 1MG / ML 2ML Vial ONE (06:54)
[2025-01-19] MEDS ORDERED: Rocuronium Bromide 10 MG/ML 5ML Injection IV ONE (06:59)
[2025-01-19] MEDS ORDERED: EPINEPhrine HCl 1 MG / ML 30ML Vial ONE (07:17)
[2025-01-19] MEDS ORDERED: Bupivacaine 0.5% W/EPI 1:200000 SDV 30 ML Vial ONE (07:18)
[2025-01-19] MEDS ORDERED: Bupivacaine 0.5% HCl 5 MG/ML 30MLVIAL ONE (07:21)
--- NOTE | 2025-01-19 07:41 | NUR ---
History, Chart, Medications and Allergies reviewed before start of procedure. Pre-Op teaching done. Pt verbalizes understanding. Patient confirms NPO status and agrees with scheduled surgery. Patient reports completing Chlorhexadine shower X2 prior to admission to hospital. Surgical site prepped with 2% Chlorhexidine cloth wipe. Lungs clear T/O to Auscultation. Patient States Post-Procedure ride home has been arranged.
--- NOTE | 2025-01-19 07:44 | NUR ---
INTERSCALENE NERVE BLOCK PERFORMED IN SDS; PT TOLERATED WELL.
[2025-01-19] MEDS ORDERED: ePHEDrine Sulfate 50 MG/ML 1ML Injection ONE (08:13)
[2025-01-19] MEDS ORDERED: Ondansetron HCl 2 MG / ML 2ML Vial ONE (08:58)
[2025-01-19] MEDS ORDERED: FentaNYL Citrate 50 MCG/ML 2 ML Injection IV PRN ×2 (09:00)
[2025-01-19] MEDS ORDERED: Ondansetron HCl 2 MG / ML 2ML Vial IV PRN (09:00)
[2025-01-19] MEDS ORDERED: HYDROmorphone HCl/Pf 1MG SYR IV PRN ×2 (09:00)
--- NOTE | 2025-01-19 11:48 | NUR ---
Discharge instructions reviewed with patient. Patient verbalizes understanding. Copy given to patient to take home. Prescription placed electronically. Dressing c/d/i. Sling in place. Polar pack sent with pt. Patient States Post-Procedure ride home has been arranged. Discharged via wheelchair to private car for ride home.
== END 2025-01-19 11:45 | disposition home or self-care (01) ==
LOC: ORSCMMR 05:45 → ORD 07:30 → ORSCMMR 11:45
PROVIDERS: Orthopaedic Surgery Sports Medicine
PROC: 0LS44ZZ Reposition Left Upper Arm Tendon, Percutaneous Endoscopic Approach (ICD-10-PCS; principal; 2025-01-19 07:30)
PROC: 0RNK4ZZ Release Left Shoulder Joint, Percutaneous Endoscopic Approach (ICD-10-PCS; principal; 2025-01-19 07:30)
PROC: 0LM24ZZ Reattachment of Left Shoulder Tendon, Percutaneous Endoscopic Approach (ICD-10-PCS; principal; 2025-01-19 07:30)
DX: M75.122 Complete rotator cuff tear or rupture of left shoulder, not specified as traumatic (principal); M75.22 Bicipital tendinitis, left shoulder; I10 Essential (primary) hypertension; I25.10 Atherosclerotic heart disease of native coronary artery without angina pectoris; G47.33 Obstructive sleep apnea (adult) (pediatric); K21.9 Gastro-esophageal reflux disease without esophagitis; Z79.899 Other long term (current) drug therapy; Z79.82 Long term (current) use of aspirin
CPT/HCPCS: A9270; C1713; J0165; J0690; J2250; J2405; J2704; J3010; J7120; Q4125